=== PATIENT | female | born 1990 | race Caucasian/White ===

== ENCOUNTER 2019-11-25 07:50 | Inpatient (IN) | payer OTHER ==
[~2019-11-25] VITALS: Ht 171.5 cm; Wt 82.0 kg
--- NOTE | 2019-11-25 14:02 | PR ---
[facility] [address] [facility] [place], [place] [address] Signed Progress Notes IP Datetime Report Generated by CPN: 11/25/2019 14:02 PROGRESS NOTES: [id number] Impression: Normal progression of labor Plan: Continue present management; Anticipate Vaginal Delivery VITAL SIGNS: [id number] Vital Signs: Reviewed; Within Normal Limits EXAM: [id number] Dilatation: 10.0 Effacement: 100 Station: 0 Uterine Contractions: every 2 minutes MEMBRANES: [id number] Membrane Status: Ruptured Amniotic Fluid Color: Clear Comments: Tolerating contractions well, will have patient try pushing Fetus A: [id number] FHR Baseline: 135 Variability: Moderate 6-25bpm Accelerations: 10X10 Presentation: Vertex Fetus B: [id number] Signing Physician: Matt Vieyra MD Copies: ~ *Electronically Signed* 11/25/19 1402 MATT VIEYRA MD PATIENT NAME: RUBI RAMIREZ PROGRESS NOTE DATE OF : 86 PHYSICIAN: MATT VIEYRA MD RPT #: [id number] REPORT IS CONFIDENTIAL AND NOT TO BE RELEASED WITHOUT AUTHORIZATION
--- NOTE | 2019-11-25 14:50 | PR ---
[facility] [address] [facility] [place], [place] [address] Signed Progress Notes IP Datetime Report Generated by CPN: 11/25/2019 14:50 PROGRESS NOTES: [id number] Impression: Slow Progression of Labor Plan: Augmentation; Anticipate Vaginal Delivery VITAL SIGNS: [id number] Vital Signs: Reviewed; Within Normal Limits EXAM: [id number] Dilatation: 10.0 Effacement: 100 Station: 0 Uterine Contractions: every 2 minutes MEMBRANES: [id number] Membrane Status: Ruptured Amniotic Fluid Color: Clear Comments: Pushing well, but no contractions for 10 mintues, wioth previous contracitons about every 2-5 minutes; will start Low-dose Pitocin augmentation Fetus A: [id number] FHR Baseline: 145 Variability: Moderate 6-25bpm Accelerations: 10X10 Presentation: Vertex Fetus B: [id number] Signing Physician: Matt Vieyra MD Copies: ~ *Electronically Signed* 11/25/19 3930 MATT VIEYRA MD PATIENT NAME: RUBI RAMIREZ PROGRESS NOTE DATE OF : 86 PHYSICIAN: MATT VIEYRA MD RPT #: [id number] REPORT IS CONFIDENTIAL AND NOT TO BE RELEASED WITHOUT AUTHORIZATION
--- NOTE | 2019-11-26 09:06 | PR ---
[facility] [address] [place], [place] [address] Signed PP Progress Notes Datetime Report Generated by CPN: 11/26/2019 09:06 SUBJECTIVE: [id number] Pain: Within normal limits Nausea/Vomiting: Denies Vital Signs: [id number] Vital Signs: Reviewed; Within Normal Limits Notable Details: PP Hgb/Hct = 8.1/22.6 EXAM: [id number] Abdomen/Uterus: Normal Lochia: Normal Vulva/Perineum: Abnormal Extremities: Normal Exam Comments: no bruising, some labial swelling IMPRESSION/PLAN/PROCEDURES: [id number] Impression: Normal progression Other Impression: PP anemai due to PP hemorrhage Plan: Continue present management Procedures: None Progress Notes: Doing well, feeling better this am, no dizziness, has been up out of bed without problem, minimal; bleeding. Montanez still in place. Wll continue slow advancement of activity, try d/c'ing Montanez later this am. Toelrating food well. Signing Physician: Matt Henry MD Copies: ~ *Electronically Signed* 11/26/19 09 MATT HENRY MD PATIENT NAME: RUBI RAMIREZ PROGRESS NOTE DATE OF : 86 PHYSICIAN: MATT HENRY MD RPT #: [id number] REPORT IS CONFIDENTIAL AND NOT TO BE RELEASED WITHOUT AUTHORIZATION
--- NOTE | 2019-11-27 12:11 | PR ---
[facility] [address] [facility] [place], [place] [address] Signed PP Progress Notes Datetime Report Generated by CPN: 11/27/2019 12:11 SUBJECTIVE: [id number] Pain: Within normal limits Nausea/Vomiting: Denies Bowel Movement: Yes Vital Signs: [id number] Vital Signs: Reviewed; Within Normal Limits Notable Details: PP Hgb/Hct = 8.1/22.6 EXAM: [id number] Abdomen/Uterus: Normal Lochia: Normal Vulva/Perineum: Abnormal Extremities: Normal Exam Comments: no bruising, some labial swelling IMPRESSION/PLAN/PROCEDURES: [id number] Impression: Normal progression Other Impression: PP anemai due to PP hemorrhage Plan: Discharge Procedures: None Progress Notes: Doging well, without complalint, no trouble with first bowel movement, minimal pain in perineum. Wants to go home. Signing Physician: Matt Vieyra MD Copies: ~ *Electronically Signed* 11/27/19 1211 MATT VIEYRA MD PATIENT NAME: RUBI RAMIREZ PROGRESS NOTE DATE OF : 86 PHYSICIAN: MATT VIEYRA MD [facility] #: [id number] REPORT IS CONFIDENTIAL AND NOT TO BE RELEASED WITHOUT AUTHORIZATION
== END 2019-11-27 13:35 | disposition home or self-care (01) | DRG 768 ==
LOC: FBCO 07:50 → FBC 07:51 → FBCO 11-29 08:58
PROVIDERS: ADMIT General Practice
PROC: 10E0XZZ Delivery of Products of Conception, External Approach (ICD-10-PCS; principal; 2019-11-25)
PROC: 0DQP0ZZ Repair Rectum, Open Approach (ICD-10-PCS; 2019-11-25)
PROC: 00HU33Z Insertion of Infusion Device into Spinal Canal, Percutaneous Approach (ICD-10-PCS; 2019-11-25)
PROC: 3E0R3BZ Introduction of Anesthetic Agent into Spinal Canal, Percutaneous Approach (ICD-10-PCS; 2019-11-25)
DX: O69.82X0 Labor and delivery complicated by other cord entanglement, without compression, not applicable or unspecified (principal); Z37.0 Single live birth; O70.3 Fourth degree perineal laceration during delivery; O72.1 Other immediate postpartum hemorrhage; O90.81 Anemia of the puerperium; D50.0 Iron deficiency anemia secondary to blood loss (chronic); Z3A.39 39 weeks gestation of pregnancy; Z88.5 Allergy status to narcotic agent
CPT/HCPCS: 01960; 36415; 85027; A9270; J2590; J2795; J3010; J7121

== ENCOUNTER 2019-12-02 04:34 | Emergency (ER) | payer OTHER ==
[~2019-12-02] VITALS: Ht 170.2 cm; Wt 81.7 kg
[2019-12-02] MEDS ORDERED: HYDROCODON-ACE1 EA10 PO (04:51)
[2019-12-02] MEDS ORDERED: IBUPROFEN800 MG PO (04:51)
[2019-12-02] MEDS ORDERED: IRON325 M1 PO (04:52)
[2019-12-02] MEDS ORDERED: NORCO 5-325 TA1 EACH PO (05:24)
== END 2019-12-02 05:34 | disposition home or self-care (01) ==
LOC: ED 04:34
DX: O72.2 Delayed and secondary postpartum hemorrhage (principal); O90.89 Other complications of the puerperium, not elsewhere classified; S31.41XA Laceration without foreign body of vagina and vulva, initial encounter
CPT/HCPCS: 85025; 99284